=== PATIENT | female | born 1975 | race Caucasian/White ===

== ENCOUNTER 2017-05-13 18:16 | Emergency (ER) | payer SELFPAY ==
[~2017-05-13] VITALS: Ht 167.6 cm; Wt 71.5 kg
[2017-05-13] MEDS ORDERED: IOHEXOL 350 MG/ML 10 ML VIAL (for RAD DIAG) IVCONTRAST ONE (18:17)
[2017-05-13 19:26] VITALS: BP 210/112; PULSE 118; RESP 16; TEMP 98.3; O2SAT 100
[2017-05-13 21:19] VITALS: BP 188/101; PULSE 101; RESP 18; O2SAT 100
[2017-05-13] MEDS ORDERED: SODIUM CHLOR 0.9% 1000 ML INJ 1,000 ML IV SCH (21:52)
--- NOTE | 2017-05-13 21:57 | PD ---
HPI Chief Complaint: Abdominal Pain Time Seen by Provider: 21:52 Travel History International Travel<30 days: No Contact w/Intl Traveler<30days: No Traveled to known affect area: No History of Present Illness HPI 31 year-old female presents to the emergency department for 2 days of right upper quadrant abdominal discomfort. Patient states discomfort as constant for over 10 in intensity and occasionally radiating into the back. No nausea no vomiting no fever or chills. Patient denies any injury. No dysuria frequency urgency no report of hematuria. Last menstrual period was last week and normal for her. Patient states that over the last 2 days she has intermittently eaten portions of a sub sandwich with mayonnaise. Patient is concerned that her right upper quadrant abdominal pain may be related to her gallbladder. No prior history of: Disease. Patient denies any chronic medical conditions. Patient is status post and appendectomy in the past. Patient also reports that when she goes to the doctor she's been told she has high blood pressure but when she checks in on her own she is not hypertensive and is not on an antihypertensive medication. [facility] Past Medical History Narrative Medical Hypertension, appendectomy [id number]; tobacco use alcohol use: Nursing notes reviewed Diminished Hearing: No Immunizations Current: Yes ?: Not LMP: 05/06/2017 : 2 Para: 1 : 2 Past Surgical History Appendectomy: Yes (01/21) Section: Yes Social History Alcohol Use: Yes (1-2 beers daily) Tobacco Use: Yes (1PPD ) Substance Use: No Allergies-Medications (Allergen,Severity, Reaction): Coded Allergies: No Known Allergies (Verified , 05/13/17) Reported Meds & Prescriptions Reported Meds & Active Scripts Active Norvasc (Amlodipine Besylate) 2.5 Mg Tab 2.5 Mg PO DAILY Cipro (Ciprofloxacin HCl) 500 Mg Tab 500 Mg PO BID 7 Days Review of Systems Except as stated in HPI: all other systems reviewed are Neg General / Constitutional: No: Fever, Chills HENT: No: Congestion Cardiovascular: No: Chest Pain or Discomfort Respiratory: No: Shortness of Breath Gastrointestinal: Positive: Abdominal Pain, No: Nausea, Vomiting, Diarrhea Genitourinary: No: Dysuria, Flank Pain Musculoskeletal: No: Pain Skin: No Rash Neurologic: No: Weakness Psychiatric: No: Anxiety Hematologic/Lymphatic: No: Lymph Node Enlargement Physical Exam Narrative GENERAL: Well-developed well-nourished female in no acute distress no respiratory distress SKIN: Warm and dry. HEAD: Normocephalic. EYES: No scleral icterus. No injection or drainage. NECK: Supple, trachea midline. No JVD or lymphadenopathy. CARDIOVASCULAR: Regular rate and rhythm without murmurs, gallops, or rubs. RESPIRATORY: Breath sounds equal bilaterally. No accessory muscle use. GASTROINTESTINAL: Abdomen soft, non-tender, no guarding or rebound, no reproducible right upper quadrant tenderness or clinical Hernandez sign, nondistended. MUSCULOSKELETAL: No cyanosis, or edema. BACK: Nontender without obvious deformity. No CVA tenderness. Data Data Last Documented VS Vital Signs Date Time Temp Pulse Resp B/P (MAP) Pulse Ox O2 Delivery O2 Flow Rate FiO2 05/13/17 23:38 97 18 151/104 (120) 97 Room Air 05/13/17 19:26 98.3 Orders Orders Complete Blood Count With Diff (05/13/17 21:52) Comprehensive Metabolic Panel (05/13/17 21:52) Lipase (05/13/17 21:52) Urinalysis - C+S If Indicated (05/13/17 21:52) Ct Abd/Pel W Iv Contrast(Rout) (05/13/17 21:52) Iv Access Insert/Monitor (05/13/17 21:52) Ecg Monitoring (05/13/17 21:52) Oximetry (05/13/17 21:52) Ondansetron Inj (Zofran Inj) (05/13/17 22:00) Sodium Chlor 0.9% 1000 Ml Inj (Ns 1000 M (05/13/17 21:52) Sodium Chloride 0.9% Flush (Ns Flush) (05/13/17 22:00) Ed Urine Pregnancytest Poc (05/13/17 21:52) Morphine Inj (Morphine Inj) (05/13/17 22:00) Urine Culture (05/13/17 21:45) Iohexol 350 Inj (Omnipaque 350 Inj) (05/13/17 18:17) Ciprofloxacin (Cipro) (05/13/17 23:15) Ketorolac Inj (Toradol Inj) (05/13/17 23:15) Potassium Chloride (Kcl) (05/13/17 23:15) Labs Laboratory Tests Test 05/13/17 21:45 White Blood Count 7.6 TH/MM3 Red Blood Count 4.30 MIL/MM3 Hemoglobin 13.8 GM/DL Hematocrit 40.2 % Mean Corpuscular Volume 93.4 FL Mean Corpuscular Hemoglobin 32.0 PG Mean Corpuscular Hemoglobin Concent 34.2 % Red Cell Distribution Width 12.4 % Platelet Count 204 TH/MM3 Mean Platelet Volume 8.2 FL Neutrophils (%) (Auto) 65.0 % Lymphocytes (%) (Auto) 25.5 % Monocytes (%) (Auto) 7.2 % Eosinophils (%) (Auto) 1.6 % Basophils (%) (Auto) 0.7 % Neutrophils # (Auto) 5.0 TH/MM3 Lymphocytes # (Auto) 1.9 TH/MM3 Monocytes # (Auto) 0.5 TH/MM3 Eosinophils # (Auto) 0.1 TH/MM3 Basophils # (Auto) 0.1 TH/MM3 CBC Comment DIFF FINAL Differential Comment Urine Color STRAW Urine Turbidity SLIGHT Urine pH 6.0 Urine Specific [place] 1.003 Urine Protein NEG mg/dL Urine Glucose (UA) NEG mg/dL Urine Ketones NEG mg/dL Urine Occult Blood TRACE Urine Nitrite NEG Urine Bilirubin NEG Urine Leukocyte Esterase SMALL Urine RBC 0-3 /hpf Urine WBC 9-14 /hpf Urine WBC Clumps FEW Urine Squamous Epithelial Cells 6-8 /hpf Urine Bacteria MOD /hpf Urine Mucus FEW /lpf Microscopic Urinalysis Comment CULTURE INDICATED Blood Urea Nitrogen 3 MG/DL Creatinine 0.52 MG/DL Random Glucose 106 MG/DL Total Protein 7.7 GM/DL Albumin 3.8 GM/DL Calcium Level 8.8 MG/DL Alkaline Phosphatase 41 U/L Aspartate Amino Transf (AST/SGOT) 70 U/L Alanine Aminotransferase (ALT/SGPT) 48 U/L Total Bilirubin 1.1 MG/DL Sodium Level 130 MEQ/L Potassium Level 3.1 MEQ/L Chloride Level 97 MEQ/L Carbon Dioxide Level 21.9 MEQ/L Anion Gap 11 MEQ/L Estimat Glomerular Filtration Rate 131 ML/MIN Lipase 120 U/L [facility] Medical Decision Making Medical Screen Exam Complete: Yes Emergency Medical Condition: Yes Medical Record Reviewed: Yes Interpretation(s) CT abd/pel CONCLUSION: 1. No acute abnormality is seen. 2. Hepatic steatosis. 3. Ovarian reid. Olvin George MD on May 13, 2017 at 22:44 Board Certified Radiologist. This report was verified electronically. UA: Positive WBCs, clumped wbc's moderate bacteria; culture indicated CBC & BMP Diagram 05/13/17 21:45 Total Protein 7.7, Albumin 3.8, Calcium Level 8.8, Alkaline Phosphatase 41 L, Aspartate Amino Transf (AST/SGOT) 70 H, Alanine Aminotransferase (ALT/SGPT) 48, Total Bilirubin 1.1 H Vital Signs Date Time Temp Pulse Resp B/P (MAP) Pulse Ox O2 Delivery O2 Flow Rate FiO2 05/13/17 22:32 113 18 184/101 (128) 99 Room Air 05/13/17 22:19 18 05/13/17 21:19 101 18 188/101 (130) 100 Room Air 05/13/17 21:03 18 05/13/17 19:26 98.3 118 16 210/112 (144) 100 Differential Diagnosis Abdominal pain, gastritis, peptic ulcer disease, pancreatitis, biliary colic, cholecystitis, renal colic, pyelonephritis, UTI, colitis, musculoskeletal pain, pneumonia Narrative Course IV access obtained specimens collected and sent for resulting CT A/P ordered; POC hcg:negative CBC metabolic panel values grossly within normal range except for mild elevation of total bilirubin 1.1; urinalysis however is markedly abnormal with white blood cells culture white blood cells and moderate bacteria with culture indicated CT abdomen and pelvis reveals no acute intra-abdominal or pelvic abnormality except for some follicular ovarian cysts Patient is stable clinically given oral dose of potassium replacement along with first dose of antibiotic and Toradol 30 mg IV Sepsis Criteria SIRS Criteria (2 or more): Heart rate over 90 Diagnosis Primary Impression: UTI (urinary tract infection) Qualified Codes: N39.0 - Urinary tract infection, site not specified Additional Impressions: Abdominal pain Qualified Codes: R10.11 - Right upper quadrant pain Ovarian cyst HTN (hypertension) Referrals: Primary Care Physician call for appointment Patient Instructions: General Instructions Additional Instructions: Increase fluid hydration Monitor temperature every 4 hours with thermometer didn't take acetaminophen/ tolerable every 4 hours and/or ibuprofen/Advil/Motrin every 6-8 hours as needed for fever 100.4F or greater or may use ibuprofen for pain associated with inflammation Complete course of antibiotic as prescribed Add potassium containing foods and beverages to dietary intake Follow-up with primary care provider Return to the emergency department for any concerns or change in condition Med/Other Pt SpecificInfo: Prescription(s) given Scripts Amlodipine (Norvasc) 2.5 Mg Tab 2.5 MG PO DAILY for Blood Pressure Management, #30 TAB 0 Refills Prov: Gerda Muhammad MD 05/13/17 Ciprofloxacin (Cipro) 500 Mg Tab 500 MG PO BID for Infection for 7 Days, TAB 0 Refills Prov: Gerda Muhammad MD 05/13/17 Disposition: 01 DISCHARGE HOME Condition: Stable Gerda Muhammad MD May 13, 2017 21:57
[2017-05-13] MEDS ORDERED: MORPHINE SULFATE 4 MG/ML INJ IV PUSH ONE (22:00)
[2017-05-13] MEDS ORDERED: ONDANSETRON HCL 4 MG/2 ML VIAL IVP ONE (22:00)
[2017-05-13] MEDS ORDERED: SODIUM CHLORIDE 0.9% FLUSH 10 ML FLUSH IV FLUSH PRN (22:00)
[2017-05-13 22:02] LABS: BASOPHIL # 0.1 TH/MM3 (0-0.2); BASOPHIL % 0.7 % (0.0-2.0); EOSINOPHIL # 0.1 TH/MM3 (0-0.4); EOSINOPHIL % 1.6 % (0.0-4.0); HEMATOCRIT 40.2 % (35.0-46.0); HEMO FLAGS DIFF FINAL; LYMPH % 25.5 % (9.0-44.0); LYMPHOCYTE # 1.9 TH/MM3 (1.0-4.8); MEAN CELL VOLUME 93.4 FL (80.0-100.0); MEAN CORPUSCULAR HGB CONC 34.2 % (32.0-36.0); MONO % 7.2 % (0.0-8.0); PLATELET COUNT 204 TH/MM3 (150-450); RED CELL DISTRIBUTION WIDTH 12.4 % (11.6-17.2); WHITE BLOOD COUNT 7.6 TH/MM3 (4.0-11.0)
[2017-05-13 22:03] LABS: GLUCOSE,URINE NEG (NEG); KETONE, URINE NEG (NEG); NITRITE,URINE NEG (NEG)
[2017-05-13 22:11] LABS: BLOOD, URINE TRACE (NEG); URINE COLOR STRAW (YELLW/STRAW)
[2017-05-13 22:12] LABS: MUCUS URINE FEW /lpf (OCC)
[2017-05-13 22:13] LABS: BACTERIA, URINE MOD /hpf; CHLORIDE 97 MEQ/L (98-107); COMMENT (UR) CULTURE INDICATED; CULTURE IF INDICATED CULTURE INDICATED; POTASSIUM 3.1 MEQ/L (3.5-5.1); RBC, URINE 0-3 /hpf (0-3); SODIUM (NA) 130 MEQ/L (136-145)
[2017-05-13 22:17] LABS: ANION GAP 11 MEQ/L (5-15); BICARBONATE 21.9 MEQ/L (21.0-32.0); BLOOD UREA NITROGEN 3 MG/DL (7-18)
[2017-05-13 22:20] LABS: ALT (GPT) 48 U/L (10-53); AST (GOT) 70 U/L (15-37); GLOMERULAR FILTRATION RATE 131 ML/MIN (>89)
[2017-05-13 22:22] LABS: TOTAL BILIRUBIN ADULT 1.1 MG/DL (0.2-1.0)
[2017-05-13 22:23] LABS: ALKALINE PHOSPHATASE 41 U/L (45-117)
[2017-05-13 22:32] VITALS: BP 184/101; PULSE 113; RESP 18; O2SAT 99
--- NOTE | 2017-05-13 22:50 | RADRPT ---
EXAM DATE/TIME: 05/13/2017 22:28 [facility] COMPARISON: No previous studies available for comparison. INDICATIONS : Right upper quadrant pain. IV CONTRAST: 100 cc Omnipaque 350 (iohexol) IV ORAL CONTRAST: No oral contrast ingested. RADIATION DOSE: 10.70 CTDIvol (mGy) MEDICAL HISTORY : None. SURGICAL HISTORY : Appendectomy. section. ENCOUNTER: Initial ACUITY: 1 day PAIN SCALE: 10/10 LOCATION: abdomen TECHNIQUE: Volumetric scanning of the abdomen and pelvis was performed. Using automated exposure control and ad justment of the mA and/or kV according to patient size, radiation dose was kept as low as reasonably achievable to obtain optimal diagnostic quality images. DICOM format image data is available electro nically for review and comparison. FINDINGS: LOWER LUNGS: The visualized lower lungs are clear. LIVER: There is diffuse decreased attenuation to the liver without lesion. There is no dilation of the bili sheela tree. No calcified gallstones. SPLEEN: Normal size without lesion. PANCREAS: Within normal limits. KIDNEYS: Normal in size and shape. There is no mass, stone or hydronephrosis. ADRENAL GLANDS: Within normal limits. VASCULAR: There is no aortic aneurysm. BOWEL/MESENTERY: The stomach, small bowel, and colon demonstrate no acute abnormality. There is no free intraperitone al air or fluid. Postsurgical clips are seen at the expected location of the appendix following appen dectomy. ABDOMINAL WALL: Within normal limits. RETROPERITONEUM: There is no lymphadenopathy. BLADDER: No wall thickening or mass. REPRODUCTIVE: The uterus is normal in size. There is a 1.4 cm cystic area at the left adnexa and a 1.3 cm cystic ar ea at the right adnexa likely related to ovarian follicles. INGUINAL: There is no lymphadenopathy or hernia. MUSCULOSKELETAL: Within normal limits for patient age. CONCLUSION: 1. No acute abnormality is seen. 2. Hepatic steatosis. 3. Ovarian reid. Olvin George MD on May 13, 2017 at 22:44 Board Certified Radiologist. This report was verified electronically.
[2017-05-13] MEDS ORDERED: CIPR-9 PO (23:01)
[2017-05-13] MEDS ORDERED: POTASSIUM CHLORIDE 20 MEQ CONTROLLED RELEASE TAB PO ONE (23:15)
[2017-05-13] MEDS ORDERED: KETOROLAC TROMETHAMINE 30 MG/ML (IVP) VIAL IV PUSH ONE (23:15)
[2017-05-13] MEDS ORDERED: CIPROFLOXACIN 500 MG TAB PO ONE (23:15)
[2017-05-13 23:32] VITALS: BP 151/104
[2017-05-13] MEDS ORDERED: NORV2.5T PO (23:37)
[2017-05-13 23:38] VITALS: BP 151/104; PULSE 97; RESP 18; O2SAT 97
== END 2017-05-13 23:46 | disposition home or self-care (01) ==
LOC: PHED 18:16
DX: I10 Essential (primary) hypertension (principal); N83.209 Unspecified ovarian cyst, unspecified side; N39.0 Urinary tract infection, site not specified; R82.90 Unspecified abnormal findings in urine
CPT/HCPCS: 74177; 80053; 81001; 83690; 84703; 85025; 87077; 87086; 87186; 96361; 96374; 96375; 99285; J1885; J2270; J2405; J7030; Q9967

== ENCOUNTER 2017-12-20 12:49 | Emergency (ER) | payer SELFPAY ==
[~2017-12-20] VITALS: Ht 172.7 cm; Wt 68.0 kg
[~2017-12-20 12:49] MED LIST: CIPR-9 PO; NORV2.5T PO
[2017-12-20 12:51] VITALS: BP 152/84; PULSE 107; RESP 18; TEMP 98.1; O2SAT 98
[2017-12-20] MEDS ORDERED: PENI500T PO (14:28)
[2017-12-20] MEDS ORDERED: PENICILLIN V POTASSIUM 500 MG TAB PO ONE (14:30)
--- NOTE | 2017-12-20 14:30 | PD ---
HPI Chief Complaint: ENT Complaint Time Seen by Provider: 14:06 Travel History International Travel<30 days: No Contact w/Intl Traveler<30days: No Traveled to known affect area: No History of Present Illness HPI 41 year old female presents to the emergency department for evaluation of sore throat that started 2 days ago. She currently rates the pain 8/10 without radiation, aching, worse with swallowing. She had a subjective fever last night. She states she took an Aleve this morning which did help alleviate the pain. She denies any headache, cough, congestion, SOB, chest pain, abdominal pain, nausea, vomiting, diarrhea. She has no chronic medical problems and takes no prescribed medications. She denies . Mild severity. PFSH Past Medical History Diminished Hearing: No Immunizations Current: Yes ?: Not LMP: NOVEMBER 2017 : 2 Para: 1 : 2 Past Surgical History Appendectomy: Yes (01/21) Section: Yes Social History Alcohol Use: Yes (1-2 beers daily) Tobacco Use: Yes (1PPD ) Substance Use: No Allergies-Medications (Allergen,Severity, Reaction): Coded Allergies: No Known Allergies (Verified , 05/13/17) Reported Meds & Prescriptions Reported Meds & Active Scripts Active Norvasc (Amlodipine Besylate) 2.5 Mg Tab 2.5 Mg PO DAILY Cipro (Ciprofloxacin HCl) 500 Mg Tab 500 Mg PO BID 7 Days Review of Systems Except as stated in HPI: all other systems reviewed are Neg Physical Exam Narrative GENERAL: Well developed, well nourished female patient, ambulatory and in no acute distress. Afebrile. SKIN: Warm and dry. HEAD: Normocephalic. Atraumatic. ENT: No nasal bleeding or discharge. Mucous membranes pink and moist. Bilateral tonsils are erythematous with exudates to the right tonsil. No tonsillar deviation. No evidence of peritonsillar abscess. Bilateral tympanic membranes are without erythema and with normal landmarks. No perforation. EYES: No scleral icterus. No injection or drainage. NECK: Supple, trachea midline. No JVD or lymphadenopathy. CARDIOVASCULAR: Regular rate and rhythm without murmurs, gallops, or rubs. RESPIRATORY: Breath sounds equal bilaterally. No accessory muscle use. Lung sounds are clear to auscultation. GASTROINTESTINAL: Abdomen soft, non-tender, nondistended. MUSCULOSKELETAL: No cyanosis, or edema. BACK: Nontender without obvious deformity. No CVA tenderness. Data Data Last Documented VS Vital Signs Date Time Temp Pulse Resp B/P (MAP) Pulse Ox O2 Delivery O2 Flow Rate FiO2 12/20/17 12:51 98.1 107 18 152/84 (106) 98 Orders Orders Penicillin V Potassium (Veetids) (12/20/17 14:30) MDM Medical Decision Making Medical Screen Exam Complete: Yes Emergency Medical Condition: Yes Medical Record Reviewed: Yes Differential Diagnosis strep pharyngitis vs. viral pharyngitis vs. URI Narrative Course 41 year old female presents to the emergency department for evaluation of sore throat for 2 days. Physical exam reveals erythematous tonsils with exudates. She declines pain medication at this time. She will be started on Pen VK. She is given her first dose here. She is to follow up with your primary care physician or return here for any acute, worsening of symptoms. Diagnosis Primary Impression: Exudative pharyngitis Referrals: Primary Care Physician as needed Patient Instructions: General Instructions, Strep Throat (ED) Departure Forms: Tests/Procedures, Work Release Enter return to work date: Dec 23, 2017 Additional Instructions: Take antibiotic as directed until gone. This is free at [employer]. Warm, saltwater gargles as needed for sore throat. Over the counter Tylenol/Ibuprofen as needed for pain. Follow up with your primary care physician. Return to the emergency department for any acute, worsening of symptoms. Med/Other Pt SpecificInfo: Prescription(s) given Scripts Penicillin V Potassium (Penicillin V Potassium) 500 Mg Tab 500 MG PO Q8H for Infection for 10 Days, #30 TAB 0 Refills Prov: Zoie Cleveland 12/20/17 Disposition: 01 DISCHARGE HOME Condition: Stable Zoie Cleveland Dec 20, 2017 14:30
== END 2017-12-20 14:45 | disposition home or self-care (01) ==
LOC: NEPC 12:49
DX: J02.9 Acute pharyngitis, unspecified (principal); F17.200 Nicotine dependence, unspecified, uncomplicated
CPT/HCPCS: 99283